=== PATIENT | female | born 1995 | race Native Hawaiian/Other Pacific Islander ===

== ENCOUNTER 2018-02-25 18:17 | Emergency (ER) | payer OTHER ==
[~2018-02-25] VITALS: Ht 190.5 cm; Wt 95.2 kg
[~2018-02-25 18:17] MED LIST: AMOCLA500 PO; CEPH500 PO; CODACE30 PO; Crutch1 EACH MISC; FERR325 PO; HYDR1TAB94 PO; IBUP600 PO; IBUP800 PO; Lopressor 25 mg25 MG PO; METO25 PO; Naprosyn500 MG PO; Norco 10-325 T1 EACH PO; Norco 5-325 Ta1 EACH PO; OXYACE5T PO; PENVK500 PO; Percocet 5-3251 EACH PO; Peridex480 ML SS; SULTRIDS PO; Veetids 500500 MG PO
[2018-02-25] MEDS ORDERED: Sudogest60 MG PO (19:03)
[2018-02-25] MEDS ORDERED: ROBAFEN DM CGH118 ML PO (19:03)
[2018-02-25] MEDS ORDERED: Zofran8 MG PO (19:03)
[2018-02-25] MEDS ORDERED: Zithromax250 MG PO (19:38)
== END 2018-02-25 19:45 | disposition home or self-care (01) ==
LOC: ER 18:17
DX: J06.9 Acute upper respiratory infection, unspecified (principal); R11.0 Nausea; F17.210 Nicotine dependence, cigarettes, uncomplicated
CPT/HCPCS: 99283

== ENCOUNTER 2018-04-25 21:25 | Emergency (ER) | payer OTHER ==
[~2018-04-25] VITALS: Ht 190.5 cm; Wt 99.8 kg
[~2018-04-25 21:25] MED LIST changes: +ROBAFEN DM CGH118 ML PO; +Sudogest60 MG PO; +Zithromax250 MG PO; +Zofran8 MG PO
== END 2018-04-25 21:57 | disposition left against medical advice (07) ==
LOC: ER 21:25
DX: Z53.21 Procedure and treatment not carried out due to patient leaving prior to being seen by health care provider (principal)

== ENCOUNTER 2020-08-20 15:06 | Inpatient (IN) | payer OTHER ==
[~2020-08-20] VITALS: Ht 190.5 cm; Wt 77.0 kg
[~2020-08-20 15:06] MED LIST changes: +CLIN300 PO; +TRAM50 PO
[2020-08-20 16:15] LABS: BASOPHILS ABSOLUTE AUTO 0.04 K/mm3 (0.00-0.23); BASOPHILS PERCENT AUTO 0 % (0-2); EOSINOPHILS ABSOLUTE AUTO 0.01 K/mm3 (0.00-0.68); EOSINOPHILS PERCENT AUTO 0 % (0-6); Hematocrit 43.1 % (33.0-51.0); Hemoglobin 13.5 g/dL (11.5-16.0); IMMATURE GRAN ABSOLUTE AUTO 0.07 K/mm3 (0.00-0.10); IMMATURE GRAN PERCENT AUTO 1 % (0-1); LYMPHOCYTES ABSOLUTE AUTO 1.69 K/mm3 (0.84-5.20); LYMPHOCYTES PERCENT AUTO 12 % (21-46); MONOCYTES ABSOLUTE AUTO 0.53 K/mm3 (0.16-1.47); MONOCYTES PERCENT AUTO 4 % (4-13); Mean Corpuscular HGB 26.8 pg (26.0-34.0); Mean Corpuscular HGB Conc 31.3 g/dL (31.5-36.5); Mean Corpuscular Volume 86 fL (80-100); Mean Platelet Volume 11.7 fL (9.1-12.4); NEUTROPHILS ABSOLUTE AUTO 11.24 K/mm3 (1.96-9.15); NEUTROPHILS PERCENT AUTO 83 % (41-73); Platelet Count 190 K/mm3 (150-400); RDW Coefficient Variation 15.9 % (11.7-14.2); RDW Standard Deviation 49.8 fL (35.1-46.3); Red Blood Cell Count 5.03 M/mm3 (3.80-5.20); White Blood Cell Count 13.58 K/mm3 (4.00-11.30)
[2020-08-20 16:37] LABS: Alanine Aminotransfer (ALT/SGP 197 U/L (12-78); Albumin, Blood 3.2 g/dL (3.4-5.0); Albumin/Globulin Ratio 0.5 (0.8-1.8); Alk Phos 223 U/L (50-136); Anion Gap 7 mmol/L (6-16); Aspartate Aminotrans (AST/SGOT 161 U/L (12-37); Bilirubin, Total 0.8 mg/dL (0.1-1.0); Blood Urea Nitrogen 10 mg/dL (8-24); Bun/Creatinine Ratio 17.8 (12.0-20.0); CO2, Blood 29 mmol/L (21-32); Chloride, Blood 93 mmol/L (98-108); Creatinine, Blood 0.56 mg/dL (0.40-1.00); Globulin, Blood 6.6 g/dL (2.2-4.0); Glomerular Filtration Rate >60 (60-); Glucose, Blood 126 mg/dL (70-99); Potassium, Blood 3.6 mmol/L (3.5-5.5); Sodium, Blood 129 mmol/L (136-145); Total Protein, Blood 9.8 g/dL (6.4-8.2)
[2020-08-20 19:47] LABS: Source, Urine Clean Catch
[2020-08-20 19:55] LABS: Appearance, Urine Cloudy (Clear); Blood, Urine 4+ (Neg); Color, Urine Amber (P-Yellow); Glucose Qualitative, Urine Neg (Neg); Ketones, Urine 1+ (Neg); Leukocyte Esterase, Urine 3+ (Neg); Nitrite, Urine Neg (Neg); Protein, Urine 2+ (Neg); Specific Gravity, Urine 1.025 (1.003-1.022); Urobilinogen, Urine 3+ (Normal)
[2020-08-20 20:03] LABS: Bilirubin, Urine 1+ (Neg)
[2020-08-20 20:06] LABS: Bacteria Many /hpf; Red Blood Cells, Urine Not Seen /hpf (0-2); Squamous Epithelial Cells Few /hpf (Few); Trichomonas Few /hpf; White Blood Cells, Urine 25-50 /hpf (0-5)
[2020-08-21 06:19] LABS: BASOPHILS ABSOLUTE AUTO 0.04 K/mm3 (0.00-0.23); BASOPHILS PERCENT AUTO 0 % (0-2); EOSINOPHILS PERCENT AUTO 0 % (0-6); Hematocrit 39.2 % (33.0-51.0); Hemoglobin 12.4 g/dL (11.5-16.0); IMMATURE GRAN ABSOLUTE AUTO 0.07 K/mm3 (0.00-0.10); IMMATURE GRAN PERCENT AUTO 1 % (0-1); LYMPHOCYTES ABSOLUTE AUTO 1.07 K/mm3 (0.84-5.20); LYMPHOCYTES PERCENT AUTO 10 % (21-46); MONOCYTES ABSOLUTE AUTO 0.41 K/mm3 (0.16-1.47); MONOCYTES PERCENT AUTO 4 % (4-13); Mean Corpuscular HGB 27.3 pg (26.0-34.0); Mean Corpuscular HGB Conc 31.6 g/dL (31.5-36.5); Mean Corpuscular Volume 86 fL (80-100); Mean Platelet Volume 11.2 fL (9.1-12.4); NEUTROPHILS PERCENT AUTO 85 % (41-73); Platelet Count 131 K/mm3 (150-400); RDW Coefficient Variation 15.9 % (11.7-14.2); RDW Standard Deviation 50.4 fL (35.1-46.3); Red Blood Cell Count 4.55 M/mm3 (3.80-5.20); White Blood Cell Count 10.79 K/mm3 (4.00-11.30)
[2020-08-21 06:29] LABS: Alanine Aminotransfer (ALT/SGP 160 U/L (12-78); Albumin, Blood 2.6 g/dL (3.4-5.0); Albumin/Globulin Ratio 0.5 (0.8-1.8); Alk Phos 179 U/L (50-136); Anion Gap 6 mmol/L (6-16); Aspartate Aminotrans (AST/SGOT 155 U/L (12-37); Bilirubin, Total 0.6 mg/dL (0.1-1.0); Blood Urea Nitrogen 11 mg/dL (8-24); Bun/Creatinine Ratio 18.7 (12.0-20.0); CO2, Blood 28 mmol/L (21-32); Chloride, Blood 100 mmol/L (98-108); Creatinine, Blood 0.59 mg/dL (0.40-1.00); Globulin, Blood 5.3 g/dL (2.2-4.0); Glomerular Filtration Rate >60 (60-); Glucose, Blood 103 mg/dL (70-99); Potassium, Blood 3.5 mmol/L (3.5-5.5); Sodium, Blood 134 mmol/L (136-145); Total Protein, Blood 7.9 g/dL (6.4-8.2)
[2020-08-21 11:01] LABS: Influenza A Negative (NEGATIVE); Influenza B Negative (NEGATIVE)
--- NOTE | 2020-08-21 14:58 | NUR ---
Echocardiogram performed by Sabina Muir under my supervision.
--- NOTE | 2020-08-21 17:37 | NUR ---
SHIFT SUMMARY PT IS ALERT AND ORIENTEDx4 AND HAS BEEN SLEEPING MOST OF THE DAY. TMAX THIS MORNING WAS 103.3 AND CAME DOWN AFTER TYLENOL. PT'S DIET WAS ADVANCED AND HAS BEEN TOLERATING. PT DID HAVE AN INC URINE AND BM TODAY. PT REPORTS SHE DOES KNOW WHEN SHE NEEDS TO USE THE RESTROOM, BUT DIDN'T UTILIZE THE CALL LIGHT TO ASK TO BE HELPED TO RESTROOM. THIS MORNING PT WAS IN A SINUS TACH ON TELEMETRY AND HAS BEEN SINUS RYHYTHM THIS AFTERNOON. OTHER VITALS HAVE BEEN STABLE.
--- NOTE | 2020-08-22 05:34 | NUR ---
SHIFT SUMMARY RESTLESS THROUGH NIGHT AO ROOM AIR TELE NSR VOIDING TOLERATING DIET HOWEVER, PT STARTED SHIFT BY WANTING TO TURN OVER HER HEROIN NEEDLES AND DRUGS. RN CALLED SECURITY TO DISPOSE OF IT ACCORDINGLY. PT LATER IN THE NIGHT INSISTED ON SMOKING - IN WHICH CASE WE CALLED SECURITY AGAIN TO ESCORT BACK TO ROOM. RN AND STAFF THEN TOOK LIGHTERS THAT PT HAD - OR SO WE THOUGHT. PT WALKED AROUND UNIT AND HALLS TRYING TO GET OUTSIDE. AFTER PT GOT BACK TO ROOM, PT IV WENT BAD - RN PULLED IV. PT VERY UPSET SINCE SHE NOW COULDNT RECEIVE HER IV PAIN AND NAUSEA MEDS. RN ATTEMPTED TO PLACE NEW IV - UNSUCCESSFUL. CALLED ANOTHER RN CAPABLE OF USING ULTRASOUND, BUT RN WASNT ABLE TO COME AT THAT MOMENT. PT THEN BECAME VERY FRUSTRATED AND BEGAN SMOKING IN BATHROOM. WHEN RN ATTEMPTED TO PUT CIGARETTE OUT - PT THREATENED RN. RN SPLASHED WATER ON CIGARETTE TO PUT OUT. RN CONFISCATED MUCH CONTRABAND POSSIBLE - BUT THERE IS STILL MORE IN HER BACKPACK THAT SHE WONT HAND OVER. SHE PROCEEDED TO LIGHT CIGARETTE AGAIN IN BATHROOM. FINALLY PT WALKED DOWN SANCHEZ AND NURSING APPLICATION SOFTWARE ENGINEER EXPLAINED THAT SHE HAS THAT RIGHT TO GO OUTSIDE AND SMOKE, BUT IF NOT BACK IN 1HR, THEN SHE IS DISCHARGED AMA. RN CALLED MD TO REQUEST NO IV TO BE IN PLACE, GIVEN PT WITH THIS EVERYDAY DRUG HISTORY WILL NOW HAVE ACCESS OUTSIDE TO SMOKE, AND HAS PROVEN TIME AND TIME AGAIN SHE CANNOT BE TRUSTED, NOR FOLLOW HOSPITAL RULES TO KEEP PT, STAFF, AND OTHER PTS SAFE. PT WILL NOW NO LONGER HAVE IV ACCESS, AND CAN STEP OUTSIDE IF SHE SO CHOOSES. SECURITY CALLED ABOUT REMAINING DRUGS, NURSING APPLICATION SOFTWARE ENGINEER AWARE, BUT BELONGINGS REMAIN IN ROOM PT DOESNT CONSENT TO US TAKING THEM, AND APPARENTLY WE CANNOT TAKE OUT WITHOUT HER APPROVAL. PT CANNOT BE TRUSTED. PT COULD CONTINUE TO SMOKE IN ROOM UNLESS WE ARE ABLE TO REMOVE THOSE ITEMS WITHOUT BEING PHYSICALLY HARMED BY PATIENT. WILL CONTINUE TO MONITOR.
--- NOTE | 2020-08-22 09:23 | NUR ---
PT AGREES TO ALLOW FOR IV PLACEMENT BUT STS THAT PLACEMENT WILL NEED TO BE ON HER SCHEDULE, STS THAT SHE WILL NOT TAKE HER MEDICATIONS OR ALLOW IV PLACEMENT UNTIL SHE HAS SHOWRED, PT IS UP TO SHOWER NOW
[2020-08-22 10:12] LABS: BASOPHILS ABSOLUTE AUTO 0.07 K/mm3 (0.00-0.23); BASOPHILS PERCENT AUTO 1 % (0-2); EOSINOPHILS PERCENT AUTO 1 % (0-6); Hematocrit 37.3 % (33.0-51.0); Hemoglobin 11.9 g/dL (11.5-16.0); IMMATURE GRAN ABSOLUTE AUTO 0.14 K/mm3 (0.00-0.10); IMMATURE GRAN PERCENT AUTO 1 % (0-1); LYMPHOCYTES PERCENT AUTO 15 % (21-46); MONOCYTES PERCENT AUTO 7 % (4-13); Mean Corpuscular HGB 26.9 pg (26.0-34.0); Mean Corpuscular HGB Conc 31.9 g/dL (31.5-36.5); Mean Corpuscular Volume 84 fL (80-100); Mean Platelet Volume 12.3 fL (9.1-12.4); NEUTROPHILS ABSOLUTE AUTO 8.16 K/mm3 (1.96-9.15); NEUTROPHILS PERCENT AUTO 75 % (41-73); Platelet Count 141 K/mm3 (150-400); RDW Coefficient Variation 15.8 % (11.7-14.2); RDW Standard Deviation 49.3 fL (35.1-46.3); Red Blood Cell Count 4.42 M/mm3 (3.80-5.20); White Blood Cell Count 10.87 K/mm3 (4.00-11.30)
[2020-08-22 10:35] LABS: Alanine Aminotransfer (ALT/SGP 165 U/L (12-78); Albumin, Blood 2.5 g/dL (3.4-5.0); Albumin/Globulin Ratio 0.5 (0.8-1.8); Alk Phos 221 U/L (50-136); Anion Gap 5 mmol/L (6-16); Aspartate Aminotrans (AST/SGOT 142 U/L (12-37); Bilirubin, Total 0.5 mg/dL (0.1-1.0); Blood Urea Nitrogen 7 mg/dL (8-24); Bun/Creatinine Ratio 14.6 (12.0-20.0); CO2, Blood 28 mmol/L (21-32); Calcium, Blood 8.5 mg/dL (8.5-10.1); Chloride, Blood 103 mmol/L (98-108); Creatinine, Blood 0.48 mg/dL (0.40-1.00); Globulin, Blood 5.2 g/dL (2.2-4.0); Glomerular Filtration Rate >60 (60-); Glucose, Blood 88 mg/dL (70-99); Sodium, Blood 136 mmol/L (136-145); Total Protein, Blood 7.7 g/dL (6.4-8.2)
--- NOTE | 2020-08-22 15:04 | NUR ---
PT REFUSED POTASSIUM AT THIS TIME SHE IS RESTING
--- NOTE | 2020-08-22 18:41 | NUR ---
PT TRANSFERRED TO ROOM 336 FROM PCU. AWAKE AND ALERT AND COOPERATIVE AT THIS TIME. EXPLAINED SMOKING EXPECTATIONS ON THIS UNIT. PT RECEPTIVE TO INFORMATION. AUNT AT BEDSIDE.
--- NOTE | 2020-08-23 00:53 | NUR ---
08/22/202038 PT SITTING UP IN BED, REPORTS ABD AND BACK PAIN, NOT TIME FOR PAIN MEDS AGAIN YET, WILL CALL DR AND GET A ONE TIME ORDER FOR SOMETHING IN THE MEAN TIME AND EVAL FOR EFFECT. PT REPORTS SOB THAT INCREASES WITH EXERTION, ON RA AT 97%. PT REPORTS N/T IN THE L BUTTOCK THAT EXTENDS UP TO HER BACK, SHE STATES THIS IS NEW SINCE ADMIT AND THAT SHE HAS NOT MENTIONED IT TO THE DR YET. I WILL MAKE SURE THAT THIS GETS PASSED ON TO THE DR. NO OTHER APPARENT SIGNS OF DISTRESS. CALL LIGHT IS IN REACH.
--- NOTE | 2020-08-23 01:54 | NUR ---
08/22/20 PT LYING IN BED, EYES CLOSED, APPEARS TO BE RESTING. BREATHING IS EVEN, UNLABORED. NO APPARENT SIGNS OF DISTRESS. CALL LIGHT IS IN REACH.
--- NOTE | 2020-08-23 01:55 | NUR ---
08/22/20 2334 PT REQUESTED AND RECIEVED PAIN AND NAUSEA MEDS, WILL EVAL FOR EFFECT. NO OTHER APPARENT SIGNS OF DISTRESS. CALL LIGHT IS IN REACH.
--- NOTE | 2020-08-23 01:55 | NUR ---
PT UP TO USE BATHROOM, CHANGED GOWN. DENIES NEED FOR ANYTHING ELSE AT THIS TIME. NO APPARENT SIGNS OF DISTRESS. CALL LIGHT IS IN REACH.
--- NOTE | 2020-08-23 03:15 | NUR ---
PT LYING IN BED, AWAKE, NO APPARENT SIGNS OF DISTRESS. DENIES NEED FOR ANYTHING ELSE AT THIS TIME. CALL LIGHT IS IN REACH.
--- NOTE | 2020-08-23 04:12 | NUR ---
AAO X 4 BUT CAN BE IMPULSIVE AT TIMES. ON RA. REPORTS ABD AND BACK PAIN AND NAUSEA. GOT OXYCODONE X 1, TORADOL AND ULTRAM X 1. ZOFRAN X 1. SCD'S.
--- NOTE | 2020-08-23 06:10 | NUR ---
0583 PT REQUESTED AND RECIEVED PAIN MEDS, WILL EVAL FOR EFFECT. NO OTHER APPARENT SIGNS OF DISTRESS. CALL LIGHT IS IN REACH. NO OTHER CHANGES THIS SHIFT.
[2020-08-23 10:06] LABS: BASOPHILS ABSOLUTE AUTO 0.05 K/mm3 (0.00-0.23); BASOPHILS PERCENT AUTO 1 % (0-2); EOSINOPHILS ABSOLUTE AUTO 0.34 K/mm3 (0.00-0.68); EOSINOPHILS PERCENT AUTO 4 % (0-6); Hematocrit 33.2 % (33.0-51.0); Hemoglobin 10.5 g/dL (11.5-16.0); IMMATURE GRAN PERCENT AUTO 1 % (0-1); LYMPHOCYTES ABSOLUTE AUTO 1.46 K/mm3 (0.84-5.20); LYMPHOCYTES PERCENT AUTO 15 % (21-46); MONOCYTES ABSOLUTE AUTO 0.57 K/mm3 (0.16-1.47); MONOCYTES PERCENT AUTO 6 % (4-13); Mean Corpuscular HGB 27.3 pg (26.0-34.0); Mean Corpuscular HGB Conc 31.6 g/dL (31.5-36.5); Mean Corpuscular Volume 86 fL (80-100); Mean Platelet Volume 12.5 fL (9.1-12.4); NEUTROPHILS ABSOLUTE AUTO 7.21 K/mm3 (1.96-9.15); NEUTROPHILS PERCENT AUTO 74 % (41-73); Platelet Count 131 K/mm3 (150-400); RDW Coefficient Variation 16.3 % (11.7-14.2); RDW Standard Deviation 51.4 fL (35.1-46.3); Red Blood Cell Count 3.85 M/mm3 (3.80-5.20); White Blood Cell Count 9.73 K/mm3 (4.00-11.30)
[2020-08-23 10:21] LABS: Alanine Aminotransfer (ALT/SGP 106 U/L (12-78); Albumin/Globulin Ratio 0.5 (0.8-1.8); Alk Phos 184 U/L (50-136); Anion Gap 6 mmol/L (6-16); Aspartate Aminotrans (AST/SGOT 74 U/L (12-37); Bilirubin, Total 0.5 mg/dL (0.1-1.0); Blood Urea Nitrogen 8 mg/dL (8-24); Bun/Creatinine Ratio 13.3 (12.0-20.0); CO2, Blood 27 mmol/L (21-32); Calcium, Blood 8.5 mg/dL (8.5-10.1); Chloride, Blood 107 mmol/L (98-108); Globulin, Blood 4.3 g/dL (2.2-4.0); Glomerular Filtration Rate >60 (60-); Glucose, Blood 120 mg/dL (70-99); Phosphorus, Blood 1.5 mg/dL (2.5-4.9); Potassium, Blood 2.7 mmol/L (3.5-5.5); Sodium, Blood 140 mmol/L (136-145); Total Protein, Blood 6.3 g/dL (6.4-8.2)
[2020-08-23 10:27] LABS: Vancomycin, Trough 27.8 ug/mL (5.0-10.0)
--- NOTE | 2020-08-23 18:21 | NUR ---
PT HAS BEEN AOX4 AND COOPERATIVE OF CARE. PT TREATED FOR PAIN PER EMAR. WHEN ON LUNCH THIS REAL ESTATE BROKER ASSOCIATE WAS TOLD PT HAD AND EPISODE OF BECOMING UPSET AND HER WITHDRAWL HAD REALY GOTTEN TO HER. DR NASSAR WAS NOTIFIED AND MEDICATION WAS ADDED TO EMAR TO ADDRESS THIS. PT DOING WELL AT THIS TIME AND HAS BEEN AMBULATING OUT AND ROUND WITH FACE MASK ON. PT CURRENTLY OUT FOR MRI. WILL CONTINUE TO MONITOR.
--- NOTE | 2020-08-24 00:58 | NUR ---
PER TRAVEL GUIDE REPORT PT ALREADY WALKED OUT THE DOOR WITH A CIGARETTE TO GO SMOKE DOWNSTAIRS.
--- NOTE | 2020-08-24 05:37 | NUR ---
CONSTRUCTION ACCOUNTANT SUMMARY 2129 PT APPEARS SLEEPING WITH EYES CLOSED AT THIS TIME. I WOKE PT UP TO RE-ASSESS TEMP AT THIS TIME. PT WAS ABLE TO MAKE SOME CONVERSATION AT THIS TIME. HOWEVER, JUST AFTER I ASSESSED PT'S S TEMP WHICH WAS 104.0, PT APPEARED TO BE IN PAIN WITH MOANS AND GRIMICES. AT THIS TIME, SHE WAS UNABLE TO TELL ME WHAT WAS WRONG. I ASKED PT IF I CAN TAKE HER VITALS AT THIS TIME TO WHICH SHE STOOD UP AND BEGAN MOANING LOUDER AND WALKED TO THE BATHROOM. SHE WAS TACHYPENIC AT THIS TIME WELL. SHE REFUSED TO HAVE ME TAKE HER VITALS AND COULDN'T SPEAK OVER THE MOANING. PT WALKED AND SAT BACK DOWN A FEW MIN LATER. AT THIS TIME, PT APPEARED VERY UPSET, CUSSED AT RN AND WANTED RN TO LEAVE THE ROOM REFUSING MEDS, VITALS. EARLY INTERVENTION SPECIALIST NOTIFIED OF PT'S CONDITION WAS ABLE TO AID IN CALMING PT DOWN. VITALS TAKEN. TORADOL AND ICE PACK PROVIDED TO DECREASE TEMP. HOSPITALIST DR. FISHER NOTIFIED AND ORDERED TYLENOL. WHEN I WENT BACK TO CHECK ON PT, PT HAS CALMED DOWN AND WAS ABLE TO TELL ME THAT SHE FELT LIKE HER LUNGS WERE "DROWNING" WHICH WAS WHY SHE WASN'T ABLE TO COMMUNICATE THIS TO ME AND WAS AGITATED. DURING THIS TIME, PT SOB HAS BEEN RESOLVED, RM SATTING IN THE MID 90'S. TEMP RE-ASSESSED AND CAME DOWN. ADDENDUM RN NEEDED TO OBTAIN VITALS IN ORDER TO CARRY OUT INTERVENTION FOR PT'S TACHYPENIA AND MOANING.
[2020-08-24 14:47] LABS: Anion Gap 7 mmol/L (6-16); Blood Urea Nitrogen 7 mg/dL (8-24); Bun/Creatinine Ratio 13.5 (12.0-20.0); CO2, Blood 26 mmol/L (21-32); Calcium, Blood 8.2 mg/dL (8.5-10.1); Chloride, Blood 104 mmol/L (98-108); Creatinine, Blood 0.52 mg/dL (0.40-1.00); Glomerular Filtration Rate >60 (60-); Glucose, Blood 125 mg/dL (70-99); Phosphorus, Blood 2.1 mg/dL (2.5-4.9); Sodium, Blood 137 mmol/L (136-145); Vancomycin, Trough 7.3 ug/mL (5.0-10.0)
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
--- NOTE | 2020-08-24 18:35 | NUR ---
SHIFT SUMMARY: POWERGLIDE IV PLACED THIS AFTERNOON, TOLERATED WELL BY PATIENT AND HER SPIRITS IMPROVED MARKEDLY. A&O X 3, INDEPENDENT IN ROOM, GOES OUTSIDE TO SMOKE PERIODICALLY. C/O PAIN IN R CHEST; MEDICATED FOR PAIN PER EMAR. TOLERATING PO INTAKE. HAD VISIT FROM HER AUNT TODAY. POTASSIUM AND PHOS REPLACED.
[2020-08-25 03:11] LABS: HIV SCREEN 4TH GENERATION WRFX Non Reactive (Non Reactive)
[2020-08-25 05:28] LABS: Hematocrit 30.8 % (33.0-51.0); Hemoglobin 9.7 g/dL (11.5-16.0); Mean Corpuscular HGB Conc 31.5 g/dL (31.5-36.5); Mean Corpuscular Volume 86 fL (80-100); Platelet Count 187 K/mm3 (150-400); RDW Standard Deviation 54.7 fL (35.1-46.3); Red Blood Cell Count 3.59 M/mm3 (3.80-5.20); White Blood Cell Count 13.52 K/mm3 (4.00-11.30)
--- NOTE | 2020-08-25 05:32 | NUR ---
SHIFT SUMMARY PT SLEPT THROUGH MUCH OF THE NIGHT. PT QUICK TO GET UPSET WHILE AWAKE. BECOMES EMOTIONAL EASILY. CONTINUES TO REPORT PAIN IN R CHEST, ESPECIALLY WITH COUGHING. APPROX 2 EPISODES OF WEAK NON PRODUCTIVE COUGHING NOTED. MEDICATED W/ TORADOL 30 MG X 2 THIS EVENING. PT DECLINED ANY ULTRAM STATING THAT IT ONLY GIVES HER A HEADACHE. PT DIAPHORETIC BUT AFEBRILE THROUGHOUT THE NIGHT EXCEPT SLIGHTLY ELEVATED THIS AM AT 99.6. VSS. NO ACUTE CHANGES THIS SHIFT. WILL CONTINUE TO MONITOR AND REPORT TO DAY RN.
[2020-08-25 05:52] LABS: Albumin, Blood 1.9 g/dL (3.4-5.0); Anion Gap 4 mmol/L (6-16); Blood Urea Nitrogen 8 mg/dL (8-24); Bun/Creatinine Ratio 13.3 (12.0-20.0); CO2, Blood 29 mmol/L (21-32); Calcium, Blood 7.8 mg/dL (8.5-10.1); Chloride, Blood 107 mmol/L (98-108); Glomerular Filtration Rate >60 (60-); Glucose, Blood 104 mg/dL (70-99); Phosphorus, Blood 2.6 mg/dL (2.5-4.9); Sodium, Blood 140 mmol/L (136-145)
[2020-08-25 06:02] LABS: BAND PERCENT MAN 1 % (0-8); BASOPHILS ABSOLUTE MAN 0.13 K/mm3 (0.00-0.23); BASOPHILS PERCENT MAN 1 % (0-2); EOSINOPHILS ABSOLUTE MAN 0.54 K/mm3 (0.00-0.68); EOSINOPHILS PERCENT MAN 4 % (0-6); LYMPHOCYTES ABSOLUTE MAN 3.24 K/mm3 (0.84-5.20); LYMPHOCYTES PERCENT MAN 24 % (21-46); MONOCYTES ABSOLUTE MAN 1.21 K/mm3 (0.16-1.47); MONOCYTES PERCENT MAN 9 % (4-13); NEUTROPHILS ABSOLUTE MAN 8.38 K/mm3 (1.96-9.15); SEG NEUTROPHILS PERCENT MAN 61 % (41-73); TOTAL CELLS COUNTED 100
[2020-08-25 09:11] LABS: HBSAG SCREEN Negative (Negative); HEP B CORE AB, TOT Negative (Negative); HEP C VIRUS AB 10.3 (0.0-0.9)
[2020-08-25 15:51] LABS: Vancomycin, Trough 18.1 ug/mL (5.0-10.0)
--- NOTE | 2020-08-25 18:24 | NUR ---
SHIFT SUMMARY PATIENT MEDICATED X2 FOR PAIN THIS SHIFT. DENIES NAUSEA AND SHORTNESS OF BREATH. PATIENT UP INDEPENDENLTY. POOR PO INTAKE. GOES OUTSIDE TO SMOKE. FEBRILE THIS AFTERNOON AT 102.9, RESOLVED WITH TYLENOL. NEW ORDERS FOR [place] FOR PAIN MANAGEMENT.
--- NOTE | 2020-08-25 19:46 | NUR ---
Multiple visits today pt affect labile at times, appears sicker with levated temp. pt very anxious about her future. theraputic time with pt and discussed working on feeling more scure her and less stress at hospitalization and not being on the street. will revaluate dosing on her ativan may benefit from scheduled dosing.
--- NOTE | 2020-08-25 21:38 | NUR ---
PT WAS DOWNSTAIRS TO SMOKE (EVEN THOUGH WAS SUGGESTED NOT TO, ENCOURABGED TO WEAR PPE), FOUND SELF "LOCKED OUT" - DIDNT GO THROUGH THE ED, BUT RATHER THE FRONT DOOR. SECURITY CALLED TO ESCORT HER TO ROOM. A FEW MINUTES LATER, SENIOR WEB ENGINEER AT THE NURSE DESK VOICED PT HAD BEEN CAUGHT "STEALING" FROM THE [employer] CART. AND HAD BEEN YELLING AT THEM WHEN CAUGHT. I WAS CALLED BY THE PT, SHE WAS INSTRUCTED TO COME UP TO HER ROOM AND IT WAS OK FOR THE SENIOR WEB ENGINEER TO ESCORT HER. SHE HUNG UP ON ME. A FEW MINUTES LATER PT WAS BACK ON THE FLOOR, CUSSING AT THE SECURITY GUARDS. I ACCOMPANIED HER TO THE ROOM, SHE WAS USING THE WHEELCHAIR. LATER, TEMP WAS 102.1. I BROUGHT IN TYLENOL, PT REFUSED TYLENOL. COOL LIQUIDS GIVEN. ENCOURAGED PT TO COMPLY WITH TREATMENT. CALL LIGHT IN REACH
--- NOTE | 2020-08-26 04:34 | NUR ---
SHIFT SUMMARY WAS EVIDENTLY CAUGHT NEAR SHIFT COMMENCE TAKING ITEM(S) FROM THE [employer] CART WITHOUT PAYING FOR THEM, CONFRONTED BY SECURITY AND PAID FOR IT BUT WAS VERY ANGRY WITH THEM- USING CUSS WORDS THEY BROUGHT HER BACK TO FLOOR. SPIKED TEMP OF 102.1, BUT REFUSED TYLENOL WHEN OFFERED AND ENCOURAGED TO TAKE IT. IV ANTIBIOTICS AND COLD DRINKS GIVEN. LATER, TYLENOL ADMIN BY ANOTHER NURSE. WILL FOLLOW UP WITH TEMP. SEE DOC FLOW SHEETS FOR DETAILS. CALL LIGHT IN REACH. LAB RETURNS GM + COCCI IN [place]. WAS NOTIFIED AND SINCE ON VANCO, NO NEW ORDERS
[2020-08-26 06:39] LABS: Hematocrit 29.2 % (33.0-51.0); Hemoglobin 9.3 g/dL (11.5-16.0); Mean Corpuscular HGB 27.1 pg (26.0-34.0); Mean Corpuscular HGB Conc 31.8 g/dL (31.5-36.5); Mean Corpuscular Volume 85 fL (80-100); Mean Platelet Volume 11.9 fL (9.1-12.4); Platelet Count 243 K/mm3 (150-400); RDW Coefficient Variation 17.4 % (11.7-14.2); RDW Standard Deviation 54.1 fL (35.1-46.3); Red Blood Cell Count 3.43 M/mm3 (3.80-5.20); White Blood Cell Count 16.57 K/mm3 (4.00-11.30)
[2020-08-26 06:54] LABS: Albumin, Blood 1.8 g/dL (3.4-5.0); Anion Gap 7 mmol/L (6-16); Blood Urea Nitrogen 9 mg/dL (8-24); Bun/Creatinine Ratio 13.2 (12.0-20.0); CO2, Blood 29 mmol/L (21-32); Calcium, Blood 7.9 mg/dL (8.5-10.1); Chloride, Blood 107 mmol/L (98-108); Creatinine, Blood 0.68 mg/dL (0.40-1.00); Glomerular Filtration Rate >60 (60-); Glucose, Blood 86 mg/dL (70-99); Phosphorus, Blood 5.1 mg/dL (2.5-4.9); Potassium, Blood 3.7 mmol/L (3.5-5.5); Sodium, Blood 143 mmol/L (136-145)
[2020-08-26 07:03] LABS: BASOPHILS PERCENT MAN 0 % (0-2); EOSINOPHILS ABSOLUTE MAN 0.49 K/mm3 (0.00-0.68); EOSINOPHILS PERCENT MAN 3 % (0-6); LYMPHOCYTES % ATYPICAL MANUAL 1 % (0-0); LYMPHOCYTES PERCENT MAN 25 % (21-46); METAMYELOCYTE ABSOLUTE MAN 0.16 K/mm3 (0.00-0.00); METAMYELOCYTE PERCENT MAN 1 % (0-0); MONOCYTES ABSOLUTE MAN 0.82 K/mm3 (0.16-1.47); MONOCYTES PERCENT MAN 5 % (4-13); MYELOCYTE ABSOLUTE MAN 0.16 K/mm3 (0.00-0.00); MYELOCYTE PERCENT MAN 1 % (0-0); SEG NEUTROPHILS PERCENT MAN 64 % (41-73); TOTAL CELLS COUNTED 100
--- NOTE | 2020-08-26 16:34 | NUR ---
SHIFT SUMMARY PATIENT MEDICATED X3 FOR PAIN THIS SHIFT. PATIENT DENIES NAUSEA AND SHORTNESS OF BREATH. PATIENT UP INDEPENDENT IN ROOM. DR. FERRARA CONSULTED TODAY. PATIETN NPO AT MIDNIGHT FOR BARIUM SWALLOW AT 9AM AND BALWINDER AFTER. PATIENT WILL BE HAVING BALWINDER WITH GENERAL ANETHESIA.
--- NOTE | 2020-08-27 04:17 | NUR ---
SHIFT SUMMARY: PT IS ALERT AND ORIENTED. PT IS MOSTLY CALM AND COOPERATIVE WITH CARE, OCCASIONALLY GETS MOMENTARILY DISTRAUGHT. PT CALLS APPROPRIATELY. PT IS INDEPENDENT, OUTSIDE TO SMOKE ON SEVERAL OCCASIONS. PT HAS INTERMITTENT FEVER AND PAIN, MEDICATING WITH TYLENOL AND HYDROCODONE NEEDED. PT KEPT NPO AFTER MIDNIGHT FOR PROCEDURE EXCEPT MEDS, SIPS AND ICE CHIPS. PT HAS INTERMITTENT SOB, SATS REMAIN > 90% ON ROOM AIR. PT DENIES NAUSEA AND VOMITING. PT SLEPT MUCH OF THE NIGHT WHEN NOT DISTURBED. NO ACUTE CHANGES OR COMPLICATIONS THIS SHIFT. WILL CONTINUE TO MONITOR.
[2020-08-27 08:20] LABS: Hemoglobin 9.4 g/dL (11.5-16.0); Mean Corpuscular HGB 26.9 pg (26.0-34.0); Mean Corpuscular HGB Conc 31.3 g/dL (31.5-36.5); Mean Corpuscular Volume 86 fL (80-100); Mean Platelet Volume 11.6 fL (9.1-12.4); Platelet Count 347 K/mm3 (150-400); RDW Coefficient Variation 17.3 % (11.7-14.2); RDW Standard Deviation 54.9 fL (35.1-46.3); Red Blood Cell Count 3.49 M/mm3 (3.80-5.20); White Blood Cell Count 16.39 K/mm3 (4.00-11.30)
[2020-08-27 08:36] LABS: Anion Gap 7 mmol/L (6-16); Blood Urea Nitrogen 9 mg/dL (8-24); Bun/Creatinine Ratio 14.6 (12.0-20.0); CO2, Blood 29 mmol/L (21-32); Calcium, Blood 8.5 mg/dL (8.5-10.1); Chloride, Blood 105 mmol/L (98-108); Creatinine, Blood 0.62 mg/dL (0.40-1.00); Glomerular Filtration Rate >60 (60-); Glucose, Blood 87 mg/dL (70-99); Potassium, Blood 4.1 mmol/L (3.5-5.5); Sodium, Blood 141 mmol/L (136-145)
[2020-08-27 08:40] LABS: Vancomycin, Trough 18.2 ug/mL (5.0-10.0)
[2020-08-27 09:11] LABS: BAND PERCENT MAN 1 % (0-8); BASOPHILS ABSOLUTE MAN 0.16 K/mm3 (0.00-0.23); BASOPHILS PERCENT MAN 1 % (0-2); EOSINOPHILS PERCENT MAN 0 % (0-6); LYMPHOCYTES ABSOLUTE MAN 3.11 K/mm3 (0.84-5.20); LYMPHOCYTES PERCENT MAN 19 % (21-46); MONOCYTES ABSOLUTE MAN 2.13 K/mm3 (0.16-1.47); MONOCYTES PERCENT MAN 13 % (4-13); MYELOCYTE ABSOLUTE MAN 0.32 K/mm3 (0.00-0.00); MYELOCYTE PERCENT MAN 2 % (0-0); NEUTROPHILS ABSOLUTE MAN 10.65 K/mm3 (1.96-9.15); SEG NEUTROPHILS PERCENT MAN 64 % (41-73); TOTAL CELLS COUNTED 100
--- NOTE | 2020-08-27 18:22 | NUR ---
SHIFT SUMMARY PT AxOx3-4. INTERMITTENT DROWSINESS THIS AFTERNOON/EVENING. C/O PAIN IN RIGHT SIDE/CHEST T/O DAY. MEDICATED PER EMAR. PT WENT FOR BARIUM SWALLOW THIS AM, HAD PANIC ATTACK, AND RAN FROM ROOM. DR FERNANDEZ WAS CALLED AND OFFERED ATIVAN TO REATTEMPT SCAN. PT AGREEABLE TO THIS, AND WAS SUCCESSFUL FOR SECOND ATTEMPT. PLAN FOR BALWINDER PROCEDURE TOMORROW AM. WILL BE NPO AFTER MIDNIGHT FOR EXPECTED PROCEDURE. PT INDEPENDENT, AND GOING OUTSIDE FOR SMOKE BREAKS. PT GONE FOR >30 MIN. FOUND IN PARKING LOT AND REMINDED SHE NEEDS TO COME RIGHT BACK TO ROOM OR MAY BE DISCHARGED. PT VERBALIZES UNDERSTANDING. PT IRRITABLE AND DISRESPECTFUL THIS AFTERNOON. REFUSED VISIT WITH DR SWAN AFTER MENTION OF CHILD DEVELOPMENT ASSISTANT CONSULT. PT ADAMANT SHE DOES NOT NEED HELP TO STOP USING DRUGS. PT SLEEPING MORE THIS EVENING. SLEPT THROUGH DINNER. FEVER NOTED AT PM VITALS. COOL WASH CLOTH, FAN, AND TYLENOL ADMINISTERED. WILL CONTINUE TO MONITOR AND RELAY UPDATES TO EVENING SHIFT. CURRENTLY SLEEPING WITH CALL LIGHT IN REACH.
--- NOTE | 2020-08-27 20:23 | NUR ---
ABRHEupdated PT is NPO at midnight poor oral intake has 100.3 temp. Order for NS at 50 ml hr x 1 l while NPO obtained.
--- NOTE | 2020-08-28 02:34 | NUR ---
PT currently NPO for BALWINDER procedure to further assess for thrombic emboli to heart. She has MRSA sepsis & hep C positive. DR Webster ID saw PT yesterday & she was lethargic but became aggitated when awake & had PRN dose of ativan 0.25 mg iv with helpful effect. PT is up indep in room & alternates between aggitation & lethargy. Accused staff of stealing money off bedside table as well as taking her meal tray. PT had dinner tray on bedside table which she ate 25% of. Alternatives offered & declined. No money noted at bedside, PT says her Mom gave her money. No visitors observed this shift & PT has not left floor. PT had been threatening to remove her IV. Now resting quietly after ativan & norco. Continues in isolation for MRSA infection.
--- NOTE | 2020-08-28 04:49 | NUR ---
PT noncompliant with NPO status for pending BALWINDER. She was eating candy this AM because she said we didn't remove her IV which is a powerglide. Cussing at staff when observed eating. Discussed need for NPO for procedure. PT verbalized understanding but blames RN because I wouldn't remove IV access. Very labile. Will discuss with MD if test needs rescheduled due to noncompliance with NPO status.
--- NOTE | 2020-08-28 05:30 | NUR ---
PT continues verbally abusive to this RN labile & blaming RN for noncompliance with NPO status. DR OSORIO called & updated & has not cancelled BALWINDER but asks to have food & drink removed from PT's room which was done. She had several pieces of red licorice in a bag at bedside & a old coffee drink. Both were removed. PT refused to sign consents & also refused IVF which has been running at 50 ml hr while NPO. NPO orders written as well as nurse notify to remove food & drink & keep PT NPO for BALWINDER. LT UE powerglide used to draw blood for lab this AM.
[2020-08-28 05:35] LABS: BASOPHILS ABSOLUTE AUTO 0.07 K/mm3 (0.00-0.23); BASOPHILS PERCENT AUTO 0 % (0-2); EOSINOPHILS PERCENT AUTO 2 % (0-6); Hematocrit 28.6 % (33.0-51.0); Hemoglobin 9.1 g/dL (11.5-16.0); Mean Corpuscular HGB Conc 31.8 g/dL (31.5-36.5); Mean Corpuscular Volume 85 fL (80-100); Mean Platelet Volume 11.5 fL (9.1-12.4); Platelet Count 421 K/mm3 (150-400); RDW Coefficient Variation 17.2 % (11.7-14.2); RDW Standard Deviation 54.4 fL (35.1-46.3); Red Blood Cell Count 3.37 M/mm3 (3.80-5.20); White Blood Cell Count 16.27 K/mm3 (4.00-11.30)
[2020-08-28 05:37] LABS: IMMATURE GRAN PERCENT AUTO 3 % (0-1); LYMPHOCYTES ABSOLUTE AUTO 4.56 K/mm3 (0.84-5.20); LYMPHOCYTES PERCENT AUTO 28 % (21-46); MONOCYTES ABSOLUTE AUTO 1.53 K/mm3 (0.16-1.47); MONOCYTES PERCENT AUTO 9 % (4-13); NEUTROPHILS ABSOLUTE AUTO 9.31 K/mm3 (1.96-9.15); NEUTROPHILS PERCENT AUTO 57 % (41-73)
[2020-08-28 05:49] LABS: Albumin, Blood 1.8 g/dL (3.4-5.0); Anion Gap 5 mmol/L (6-16); Blood Urea Nitrogen 12 mg/dL (8-24); CO2, Blood 28 mmol/L (21-32); Calcium, Blood 8.1 mg/dL (8.5-10.1); Chloride, Blood 105 mmol/L (98-108); Creatinine, Blood 0.67 mg/dL (0.40-1.00); Glomerular Filtration Rate >60 (60-); Glucose, Blood 89 mg/dL (70-99); Phosphorus, Blood 4.5 mg/dL (2.5-4.9); Potassium, Blood 4.1 mmol/L (3.5-5.5); Sodium, Blood 138 mmol/L (136-145)
--- NOTE | 2020-08-28 14:14 | NUR ---
PT AWAKE AND VERBLIZING WELL. REPORT GIVEN TO [facility] FLO[facility] RN. PT TAKEN BACK TO [facility] VIA W/C.
--- NOTE | 2020-08-28 17:44 | NUR ---
PT AOX4 AND CAN BE COOPERATIVE OR COMBATIVE WITH CARE. THIS CHANGES FROM ONE MOMENT TO THE OTHER. PT STARTED SHIFT VERY AGITATED DUE TO BEING KEEP NPO FOR HER BALWINDER. PT HAD TOLD NIGHT NURSE SHE HAD ATE CANDY AND THEN LATER IN THE MORNING TOLD AID SHE HAD NOT SHE JUST DID THIS TO BOTHER THE NIGHT NURSE. PT KEEP WANTING TO BE DISCONNECTED TO GO SMOKE AND KEEP ARGUING TO NOT HAVE HER ANTIBOITC AND TO LET HER GO SMOKE. PT DID RECIEVE HER IV MEDS, BUT ENDED UP SMOKING PRIOR TO BALWINDER BEING DONE AGAINST ANESTHESIOLOGIST ADVICE. PT WAS UNHOOKED OUT IN THE SANCHEZ BY A CHARGE NURSE SHE WAS PLANNING TO TAKE HER IV POLE WITH HER. PT HAS EATEN SINCE ARRIVING BACK TO ROOM AND WAS TREATED FOR PAIN AND NAUSEA. PT IS SLEEPING AT THIS TIME WILL CONTINUE TO MONITOR. CALL LIGHT IS WITHIN REACH.
--- NOTE | 2020-08-29 06:05 | NUR ---
ROOM SERVICE MANAGER SUMMARY NO ACUTE CHANGES THIS SHIFT. PT VERY ANXIOUS AND IRRITABLE AT TIMES. PT CAN BE VERY RUDE TO STAFF AND IS VERY DEMANDING. MEDICATED FOR ANXIETY AND PAIN AT BEDTIME WITH NORCO AND ATIVAN PER EMAR. PT ABLE TO SLEEP MOST OF THE SHIFT. PT OUT TO SMOKE SEVERAL TIMES THROUGH THE NIGHT. VSS, WILL CONTINUE TO MONITOR.
--- NOTE | 2020-08-29 17:00 | NUR ---
SUMMARY PT SITTING UP IN BED EATING SNACKS AND WATCHING TV, PT HAS BEEN UP TO WALK IN THE HALLS SEVERAL TIMES TODAY, PT HAS BEEN COOPERATIVE WITH CARE, MED PER EMAR FOR PAIN AND NAUSEA, FAMILY HAS BEEN IN TO VISIT, CARE MANAGEMENT DID COME BY TO UPDATE THE PT ON THE PLAN, PT WILL NEED IV ANTIBIOTICS FOR SEVERAL WEEKS, PT AGREEABLE TO ANY DISCHARGE PLAN AT THIS TIME, VSS, NO ACUTE CHANGES, WILL CONT TO MONITOR
--- NOTE | 2020-08-29 19:25 | NUR ---
ASSUMED CARE. SIGNIFICANT OTHER LEFT FOR THE NIGHT. PATIENT RESTING ON SIDE LISTENING TO AUDIO BOOK, REPORTS CONSTANT PAIN IN RIB AREA AND ABDOMIN. PAIN WITH TURNING SHE MOANS BUT THEN MOANING STOPS QUICKLY. LUNG SOUNDS ARE CLEAR T/O, RESP ARE EVEN AND UNLABORED. NO COUGH NOTED. NO OTHER FINDING ON ASSESSMENT TO NOTE. DENIES ANY NEEDS AT THIS TIME. CALL LIGHT IS IN REACH.
[2020-08-29 20:10] LABS: HEPATITIS C QUANTITATION <15 IU/mL (.)
--- NOTE | 2020-08-30 05:18 | NUR ---
SHIFT SUMMARY: RADHA WAS COOPERATIVE AND PLEASANT. VS WNL, AFEBRILE. REPORTS OF CONSTANT PAIN IN ABDOMIN AND THROAT. BUT WAS ABLE TO DRINK AND EAT FINE. INDEPENDENT AND ABLE TO GO OUTSIDE SEVERAL TIMES FOR A SMOKE ON HER OWN. SLEPT WELL BETWEEN INTERVENTIONS. ANTIBOTICS INFUSED WITH NO PROBLEMS. GOOD APPETITE. MEDICATED FOR PAIN X1 AND ANXIETY X1. SHE DID GET UPSET ABOUT HER ATIVAN BEING CHANGED TO PILL AND REFUSED TO TAKE IT AT FIRST. ASKED FOR DOCTOR TO BE CALLED FOR THE IV WHICH WAS DENIED. SO SHE TOOK PILL FORM. THAT WAS THE ONLY ISSUES THIS SHIFT. NO ACUTE CHANGES WERE NOTED. CALL LIGHT REMAINED IN REACH.
[2020-08-30 08:41] LABS: BASOPHILS ABSOLUTE AUTO 0.09 K/mm3 (0.00-0.23); BASOPHILS PERCENT AUTO 1 % (0-2); EOSINOPHILS ABSOLUTE AUTO 0.34 K/mm3 (0.00-0.68); EOSINOPHILS PERCENT AUTO 2 % (0-6); Hematocrit 30.2 % (33.0-51.0); Hemoglobin 9.3 g/dL (11.5-16.0); IMMATURE GRAN PERCENT AUTO 3 % (0-1); LYMPHOCYTES ABSOLUTE AUTO 3.65 K/mm3 (0.84-5.20); LYMPHOCYTES PERCENT AUTO 24 % (21-46); MONOCYTES ABSOLUTE AUTO 1.13 K/mm3 (0.16-1.47); MONOCYTES PERCENT AUTO 7 % (4-13); Mean Corpuscular HGB 26.7 pg (26.0-34.0); Mean Corpuscular HGB Conc 30.8 g/dL (31.5-36.5); Mean Corpuscular Volume 87 fL (80-100); Mean Platelet Volume 10.8 fL (9.1-12.4); NEUTROPHILS ABSOLUTE AUTO 9.93 K/mm3 (1.96-9.15); NEUTROPHILS PERCENT AUTO 64 % (41-73); Platelet Count 527 K/mm3 (150-400); RDW Coefficient Variation 17.2 % (11.7-14.2); Red Blood Cell Count 3.48 M/mm3 (3.80-5.20); White Blood Cell Count 15.54 K/mm3 (4.00-11.30)
[2020-08-30 09:00] LABS: Anion Gap 7 mmol/L (6-16); Blood Urea Nitrogen 12 mg/dL (8-24); Bun/Creatinine Ratio 20.9 (12.0-20.0); CO2, Blood 26 mmol/L (21-32); Calcium, Blood 8.9 mg/dL (8.5-10.1); Chloride, Blood 105 mmol/L (98-108); Creatinine, Blood 0.57 mg/dL (0.40-1.00); Glomerular Filtration Rate >60 (60-); Glucose, Blood 94 mg/dL (70-99); Magnesium, Blood 2.2 mg/dL (1.6-2.4); Phosphorus, Blood 4.7 mg/dL (2.5-4.9); Potassium, Blood 4.2 mmol/L (3.5-5.5); Sodium, Blood 138 mmol/L (136-145)
[2020-08-30 09:11] LABS: Creatinine, Blood 0.61 mg/dL (0.40-1.00); Vancomycin, Trough 20.8 ug/mL (5.0-10.0)
--- NOTE | 2020-08-30 15:31 | NUR ---
AT 1615 MANAGER TRADE MARKETING IN PATIENT ROOM WHO REQUESTED THAT NURSE REMOVE HER POWERGLIDE "NOW." NURSE IN ROOM IMMEDIATELY WHERE PATIENT DEMANDED HER PAIN MEDICATION "NOW" BUT THEN TOLD THE NURSE SHE CAN WAIT UNTIL SHE WAS DONE. PATIENT APPEARED TO BE PACKING BELONGINGS. PATIENT THEN TOLD NURSE TO "GET OUT". DR SWAN IN AT THAT POINT. PATIENT CURSING AT HIM. DR SWAN THEN LEFT HER ROOM AND SHE SHUT THE DOOR AFTER. AT 1346 PT WAS HEARD SCREAMING ON THE PHONE. PT LEFT ROOM WITH BELONGINGS IN HAND AT 1355. MIKAEL LEON AND THIS NURSE WALKED WITH PATIENT ASKING HER TO WAIT SO WE COULD TALK. PATIENT CURSED AT US. EDUCATED PATIENT THAT SHE COULD NOT LEAVE WITH POWERGLIDE IN HER ARM. PATIENT CONTINUED TO CURSE AND WALK OUT. SECURITY CALLED. AJ SAT WITH PATIENT AND PATIENT'S MOTHER ARRIVED. PT BACK IN ROOM AT THIS TIME AWAITING DISCHARGE. DR FERNANDEZ NOTIFIED AT THE TIME PATIENT WAS WALKING OUT.
[2020-08-30] MEDS ORDERED: IBUP400 PO (15:35)
[2020-08-30] MEDS ORDERED: ACET325 PO (15:35)
[2020-08-30] MEDS ORDERED: ONDA4ODT MM (15:35)
[2020-08-30] MEDS ORDERED: LINE600 PO (15:36)
--- NOTE | 2020-08-30 17:11 | NUR ---
DISCHARGE SUMMARY PT DISCHARGED TO HOME. PT STATES THAT SHE IS HOMELESS AND THAT SHE IS GOING TO THE [place] AT [facility]. PATIENT GIVEN RESOURCE PACKET FROM MIKAEL LEON AND SHOWED PATIENT WHERE TO FIND EMERGENCY HOUSING. PT THANKED NURSE. POWERGLIDE DC'D AND BELONGINGS RETURNED. PT MEDICATED FOR PAIN AND ANXIETY PRIOR TO DC. PT EDUCATED ABOUT MEDICATIONS AND INSTRUCTED TO FOLLOW UP WITH PCP. PT AGREES. PT LEFT ROOM WITH STEADY GAIT, PUSHING WHEELCHAIR AT 1630. STATES THAT HER AUNT IS PICKING HER UP.
== END 2020-08-30 16:30 | disposition home or self-care (01) | DRG 871 ==
LOC: ER 15:06 → MEDS 22:51 → PCU 22:51 → MEDS 08-22 18:12
PROVIDERS: Family Medicine; Internal Medicine; Internal Medicine Infectious Disease; Pharmacist; Physician Assistant; ADMIT Internal Medicine
DX: A41.02 Sepsis due to Methicillin resistant Staphylococcus aureus (principal); I26.90 Septic pulmonary embolism without acute cor pulmonale; J18.9 Pneumonia, unspecified organism; R65.21 Severe sepsis with septic shock; K83.1 Obstruction of bile duct; N39.0 Urinary tract infection, site not specified; Q87.410 Marfan syndrome with aortic dilation; E87.1 Hypo-osmolality and hyponatremia; R04.2 Hemoptysis; F11.23 Opioid dependence with withdrawal; Z20.828 Contact with and (suspected) exposure to other viral communicable diseases; D69.6 Thrombocytopenia, unspecified; E83.39 Other disorders of phosphorus metabolism; E87.6 Hypokalemia; F17.210 Nicotine dependence, cigarettes, uncomplicated; Z59.0 Homelessness; R13.10 Dysphagia, unspecified; Z91.19 Patient's noncompliance with other medical treatment and regimen; B96.20 Unspecified Escherichia coli [E. coli] as the cause of diseases classified elsewhere; D64.9 Anemia, unspecified; M41.9 Scoliosis, unspecified
CPT/HCPCS: 36415; 71045; 71046; 71260; 72158; 74220; 76705; 80048; 80053; 80069; 80202; 81001; 81025; 82565; 83605; 83690; 83735; 84100; 85025; 86308; 86317; 86704; 86708; 86803; 87040; 87077; 87086; 87147; 87186; 87340; 87389; 87522; 87804; 93005; 93010; 93306; 93312; 93325; 94640; 94760; 96361; 96374-59; 96375-59; 99285-25; A9270; A9270-GY; A9579; C1751; J0456; J0692; J0696; J1650; J1885; J2060; J2250; J2405; J2704; J2765; J3010; J3370; J7030; J7050; Q9967; U0003

== ENCOUNTER 2020-09-01 14:11 | Emergency (ER) | payer OTHER ==
[~2020-09-01] VITALS: Ht 190.5 cm; Wt 63.5 kg
[~2020-09-01 14:11] MED LIST changes: +ACET325 PO; +IBUP400 PO; +LINE600 PO; +ONDA4ODT MM
[2020-09-01 14:46] LABS: BASOPHILS ABSOLUTE AUTO 0.13 K/mm3 (0.00-0.23); BASOPHILS PERCENT AUTO 1 % (0-2); EOSINOPHILS ABSOLUTE AUTO 0.15 K/mm3 (0.00-0.68); EOSINOPHILS PERCENT AUTO 1 % (0-6); Hematocrit 33.7 % (33.0-51.0); Hemoglobin 10.3 g/dL (11.5-16.0); IMMATURE GRAN ABSOLUTE AUTO 0.26 K/mm3 (0.00-0.10); IMMATURE GRAN PERCENT AUTO 2 % (0-1); LYMPHOCYTES ABSOLUTE AUTO 3.27 K/mm3 (0.84-5.20); LYMPHOCYTES PERCENT AUTO 20 % (21-46); MONOCYTES ABSOLUTE AUTO 0.82 K/mm3 (0.16-1.47); MONOCYTES PERCENT AUTO 5 % (4-13); Mean Corpuscular HGB Conc 30.6 g/dL (31.5-36.5); Mean Corpuscular Volume 89 fL (80-100); Mean Platelet Volume 11.1 fL (9.1-12.4); NEUTROPHILS ABSOLUTE AUTO 11.64 K/mm3 (1.96-9.15); NEUTROPHILS PERCENT AUTO 72 % (41-73); Platelet Count 592 K/mm3 (150-400); RDW Coefficient Variation 17.1 % (11.7-14.2); RDW Standard Deviation 55.4 fL (35.1-46.3); Red Blood Cell Count 3.81 M/mm3 (3.80-5.20); White Blood Cell Count 16.27 K/mm3 (4.00-11.30)
[2020-09-01 15:06] LABS: Alanine Aminotransfer (ALT/SGP 124 U/L (12-78); Albumin, Blood 2.4 g/dL (3.4-5.0); Albumin/Globulin Ratio 0.3 (0.8-1.8); Alk Phos 188 U/L (50-136); Anion Gap 8 mmol/L (6-16); Aspartate Aminotrans (AST/SGOT 112 U/L (12-37); Bilirubin, Total 0.4 mg/dL (0.1-1.0); Blood Urea Nitrogen 16 mg/dL (8-24); Bun/Creatinine Ratio 28.1 (12.0-20.0); CO2, Blood 25 mmol/L (21-32); Calcium, Blood 8.9 mg/dL (8.5-10.1); Chloride, Blood 104 mmol/L (98-108); Creatinine, Blood 0.57 mg/dL (0.40-1.00); Glomerular Filtration Rate >60 (60-); Glucose, Blood 89 mg/dL (70-99); Potassium, Blood 4.6 mmol/L (3.5-5.5); Sodium, Blood 137 mmol/L (136-145); Total Protein, Blood 10.4 g/dL (6.4-8.2)
== END 2020-09-01 15:34 | disposition left against medical advice (07) ==
LOC: ER 14:11
PROVIDERS: Physician Assistant
DX: R06.02 Shortness of breath (principal); Z53.20 Procedure and treatment not carried out because of patient's decision for unspecified reasons; Z87.01 Personal history of pneumonia (recurrent); Z86.711 Personal history of pulmonary embolism; F17.210 Nicotine dependence, cigarettes, uncomplicated; Z86.14 Personal history of Methicillin resistant Staphylococcus aureus infection; Z79.899 Other long term (current) drug therapy
CPT/HCPCS: 36415; 71045; 80053; 85025; 87040; 93005; 93010; 99285-25

== ENCOUNTER 2020-11-02 19:31 | Emergency (ER) | payer OTHER ==
[~2020-11-02] VITALS: Ht 190.5 cm; Wt 72.6 kg
[2020-11-02] MEDS ORDERED: Magnesium Citr296 ML PO (20:34)
== END 2020-11-02 21:03 | disposition home or self-care (01) ==
LOC: ER 19:31
DX: K56.41 Fecal impaction (principal); F17.200 Nicotine dependence, unspecified, uncomplicated
CPT/HCPCS: 99283

== ENCOUNTER 2021-04-25 18:39 | Emergency (ER) | payer OTHER ==
[~2021-04-25] VITALS: Ht 190.5 cm; Wt 77.1 kg
[~2021-04-25 18:39] MED LIST changes: +Magnesium Citr296 ML PO
[2021-04-25 19:58] LABS: BASOPHILS ABSOLUTE AUTO 0.03 K/mm3 (0.00-0.23); BASOPHILS PERCENT AUTO 0 % (0-2); EOSINOPHILS ABSOLUTE AUTO 0.08 K/mm3 (0.00-0.68); EOSINOPHILS PERCENT AUTO 1 % (0-6); Hematocrit 37.2 % (33.0-51.0); Hemoglobin 11.1 g/dL (11.5-16.0); IMMATURE GRAN ABSOLUTE AUTO 0.03 K/mm3 (0.00-0.10); IMMATURE GRAN PERCENT AUTO 0 % (0-1); LYMPHOCYTES PERCENT AUTO 25 % (21-46); MONOCYTES PERCENT AUTO 5 % (4-13); Mean Corpuscular HGB 24.2 pg (26.0-34.0); Mean Corpuscular HGB Conc 29.8 g/dL (31.5-36.5); Mean Corpuscular Volume 81 fL (80-100); Mean Platelet Volume 11.2 fL (9.1-12.4); NEUTROPHILS ABSOLUTE AUTO 7.75 K/mm3 (1.96-9.15); NEUTROPHILS PERCENT AUTO 69 % (41-73); Platelet Count 331 K/mm3 (150-400); RDW Coefficient Variation 17.1 % (11.7-14.2); Red Blood Cell Count 4.59 M/mm3 (3.80-5.20); White Blood Cell Count 11.29 K/mm3 (4.00-11.30)
[2021-04-25 20:06] LABS: Alanine Aminotransfer (ALT/SGP 20 U/L (12-78); Albumin, Blood 3.4 g/dL (3.4-5.0); Albumin/Globulin Ratio 0.5 (0.8-1.8); Alk Phos 92 U/L (50-136); Anion Gap 4 mmol/L (6-16); Aspartate Aminotrans (AST/SGOT 19 U/L (12-37); Bilirubin, Total 0.4 mg/dL (0.1-1.0); Blood Urea Nitrogen 13 mg/dL (8-24); Bun/Creatinine Ratio 17.9 (12.0-20.0); CO2, Blood 30 mmol/L (21-32); Calcium, Blood 9.3 mg/dL (8.5-10.1); Chloride, Blood 103 mmol/L (98-108); Creatinine, Blood 0.73 mg/dL (0.40-1.00); Globulin, Blood 6.4 g/dL (2.2-4.0); Glomerular Filtration Rate >60 (60-); Glucose, Blood 97 mg/dL (70-99); Potassium, Blood 3.9 mmol/L (3.5-5.5); Sodium, Blood 137 mmol/L (136-145); Total Protein, Blood 9.8 g/dL (6.4-8.2)
[2021-04-25 20:17] LABS: Source, Urine Clean Catch
[2021-04-25 20:28] LABS: Bilirubin, Urine Neg (Neg); Blood, Urine 3+ (Neg); Glucose Qualitative, Urine Neg (Neg); Ketones, Urine 1+ (Neg); Leukocyte Esterase, Urine 3+ (Neg); Nitrite, Urine Neg (Neg); Protein, Urine 2+ (Neg); Urobilinogen, Urine 1+ (Normal)
[2021-04-25 20:48] LABS: Appearance, Urine Cloudy (Clear); Color, Urine Yellow (P-Yellow)
[2021-04-25 20:50] LABS: Bacteria Many /hpf; Squamous Epithelial Cells Few /hpf (Few); White Blood Cells, Urine TNTC /hpf (0-5)
[2021-04-25 20:52] LABS: Triple Phosphate Crystals Many /hpf
[2021-04-25] MEDS ORDERED: SULTRIDS PO (22:28)
[2021-04-25] MEDS ORDERED: MAGCIT300 PO (22:28)
[2021-04-25] MEDS ORDERED: Fleet Enema132 ML PR (22:46)
== END 2021-04-25 23:02 | disposition home or self-care (01) ==
LOC: ER 18:39
PROVIDERS: Physician Assistant
DX: K59.09 Other constipation (principal); N12 Tubulo-interstitial nephritis, not specified as acute or chronic; N39.0 Urinary tract infection, site not specified; F17.210 Nicotine dependence, cigarettes, uncomplicated
CPT/HCPCS: 36415; 74022; 80053; 81001; 81025; 83690; 85025; 87077; 87086; 87186; 99283-25; A9270

== ENCOUNTER 2021-04-29 10:51 | Emergency (ER) | payer OTHER ==
[~2021-04-29] VITALS: Ht 170.2 cm; Wt 52.2 kg
[~2021-04-29 10:51] MED LIST changes: +Fleet Enema132 ML PR; +MAGCIT300 PO
== END 2021-04-29 15:15 | disposition left against medical advice (07) ==
LOC: ER 10:51
DX: K59.00 Constipation, unspecified (principal); Z53.21 Procedure and treatment not carried out due to patient leaving prior to being seen by health care provider
CPT/HCPCS: 99283

== ENCOUNTER 2021-05-03 16:06 | Emergency (ER) | payer OTHER | END 2021-05-03 16:44 | disposition left against medical advice (07) | LOC: ER 16:06 | DX: Z53.21 Procedure and treatment not carried out due to patient leaving prior to being seen by health care provider (principal) ==